=== PATIENT | female | born 1980 | race Caucasian/White ===

== ENCOUNTER 2020-08-24 04:06 | Emergency (ER) | payer BC, SELFPAY ==
--- NOTE | 2020-08-24 04:09 | ED_ITS ---
HPI - Abdominal Pain General Chief Complaint: Back Pain/Injury Stated Complaint: states abdominal and back pain since 1am Time Seen by Provider: 08/24/20 04:08 Source: patient Mode of arrival: Ambulatory Limitations: no limitations History of Present Illness HPI narrative: 39-year-old female nonsmoker presents to the emergency department with a chief complaint of decreased bowel movements, generalized, crampy abdo aviva discomfort and lower back pain over the course of this morning. She states that she has had trouble off and on at many times in her life with constipation and felt like she has been getting a bit backed up over the past few days. She denies nausea, vomiting or diarrhea. She denies any dysuria, frequency or urgency. She denies vaginal bleeding or discharge. She denies any dizziness, weakness or lightheadedness.She denies any injury. She denies radiation of her pain. MD complaint: abdominal pain Onset (ago): hour(s) Pain Consistency: intermittent Location: diffuse Severity: moderate Severity scale (1-10): 5 Quality: cramping Radiation: none Relieving factors: nothing Related Data Home Medications Medication Instructions Recorded Confirmed ACETAMINOPHEN 1,300 mg PO Q6HP #0 12/30/12 ibuprofen 600 mg PO Q8HP #0 12/30/12 Previous Rx's Medication Instructions Recorded levonorgestrel-ethinyl estrad 1 tab PO QDAY #1 pac 01/21/17 [Levora-28] Allergies Allergy/AdvReac Type Severity Reaction Status Date / Time No Known Drug Allergies Allergy Verified 08/24/20 04:15 Review of Systems Constitutional Constitutional: Denies chills, Denies fatigue, Denies fever(s), Denies frequent falls, Denies lethargy and Denies weakness Eyes Eyes: Denies change in vision, Denies eye discharge, Denies irritation and Denies loss of vision ENT Ears, Nose, Mouth, and Throat: Denies change in voice, Denies dizziness, Denies neck pain, Denies sore throat and Denies throat swelling Cardiovascular Cardiovascular: Denies chest pain, Denies irregular heart rhythm, Denies lightheadedness, Denies palpitations, Denies dyspnea, Denies dyspnea on exertion and Denies orthopnea Respiratory Respiratory: Denies cough, Denies dyspnea, Denies dyspnea on exertion and Denies wheezing Gastrointestinal Gastrointestinal: Reports abdominal pain, Denies change in bowel habits, Reports constipation, Denies diarrhea, Denies nausea and Denies vomiting Musculoskeletal Musculoskeletal: Reports back pain, Denies neck pain and Denies numbness Integumentary/Breasts Skin/Breast: Denies pruritus, Denies erythema, Denies rash and Denies wounds Neurologic Neurologic: Denies behavioral changes, Denies confusion, Denies dizziness, Denies frequent falls, Denies loss of vision, Denies numbness and Denies weakness Psychiatric Psychiatric: Denies anxiety, Denies behavioral changes, Denies confusion, Denies depression, Denies homicidal ideation and Denies suicidal ideation Endocrine Endocrine: Denies fatigue, Denies flushing and Denies palpitations Hematologic/Lymphatic Hematologic/Lymphatic: Denies easy bruising Allergic/Immunologic Allergic/Immunologic: Denies urticaria, Denies throat swelling and Denies wheezing Patient History Surgical History History of third molar tooth extraction Status post dilation and curettage Status post tonsillectomy and adenoidectomy Social History Smoking Status: Never smoker Smoking Status: Never smoker Exam Narrative Exam Narrative: GENERAL: [39] year old patient appears stated age. Well- nourished, well-developed patient, in mild distress. HEAD: Atraumatic. Normocephalic. EYES: Pupils equal round and reactive. Extraocular motions intact. No scleral icterus. No injection or drainage. ENT: Nose without bleeding, purulent drainage. Throat without erythema, tonsillar hypertrophy or exudate. Airway patent. NECK: Trachea midline. Non tender CARDIOVASCULAR: Regular rate and rhythm without murmurs, gallops, or rubs. RESPIRATORY: Clear to auscultation. Breath sounds equal bilaterally. No wheezes, rales, or rhonchi. GASTROINTESTINAL: Abdomen soft, non-tender, mild distension, bowel sounds present in all 4 quadrants. No rebound. EXTREMITIES: No edema or joint tenderness. BACK: framing machine tender but free of any obvious external abnormalities. Patient exam notes decreased range of motion and muscle spasm, but no CVA tenderness, or vertebral point tenderness. There are no symptoms of cauda equina such as saddle anesthesia, and decreased reflexes, decreased sensation or strength. NEURO: AOx3. SKIN: No rash or erythema of visible areas Initial Vital Signs Initial Vital Signs: Vital Signs Temperature 98.2 F 08/24/20 04:16 Pulse Rate 87 08/24/20 04:16 Respiratory Rate 17 08/24/20 04:16 Blood Pressure 157/95 H 08/24/20 04:16 Pulse Oximetry 100 08/24/20 04:16 Course Orders Ordered: ED Orders 08/24/20 04:18 XR acute abdomen series Stat 08/24/20 05:06 Test Urine Stat Urinalysis and Microscopic Stat Vital Signs Vital signs: Vital Signs - 8 hr 08/24/20 04:16 Temperature 98.2 F Pulse Rate 87 Respiratory Rate 17 Blood Pressure 157/95 H Pulse Oximetry 100 MDM - Abdominal Pain Lab Data Labs: Lab Results 08/24/20 08/24/20 Range/Units 05:06 05:06 Urine Color Yellow Urine Appearance Clear Urine pH 6.0 (4.5-8.0) Ur Specific Flasher <=1.005 (1.000-1.035) Urine Protein Negative (Negative) Urine Glucose (UA) Negative (Negative) g/dL Urine Ketones Trace H (NEGATIVE) Urine Occult Blood Trace-intact (Negative) Urine Nitrate Negative (Negative) Urine Bilirubin Negative (NEGATIVE) Urine Urobilinogen 0.2 (0.2) E.U./dL Ur Leukocyte Esterase Negative (NEGATIVE) Urine RBC None seen (0-5/HPF) Urine WBC None seen (0-5/HPF) Ur Squamous Epith Cells 5-10 /hpf H (0-5/HPF) Urine Bacteria Moderate (10-30) H (None) Ur Culture Indicated? Cult not indicated Urine Test Negative (Negative) Imaging Data Abdominal x-ray: Attestation: I personally reviewed and interpreted this imaging study as follows: My Impression: non specific bowel gas pattern, no obstruction or free air MDM Narrative Medical decision making narrative: Patient with decreased bowel movements, crampy, episodic abdominal pain and lower back pain. Patient has a very reassuring exam, obstruction considered but thought very unlikely given the presentation of the x-ray, soft abdomen on exam and lack of nausea or vomiting. Other etiologies such as appendicitis, gallbladder or pancreatic disease considered but thought less likely given the nature of her exam. Back pain is likely a consequence of the constipation causing her abdominal pain. She has no midline tenderness, no fever or high risk features such as numbness, tingling, weakness, involvement bowel or bladder control or other. Return precautions given, questions answered to her apparent satisfaction. Discharge Plan Departure Patient Disposition: Home Clinical Impression: Back pain Abdominal pain Qualifiers: Abdominal location: generalized Qualified Code(s): R10.84 - Generalized abdominal pain Constipation Qualifiers: Constipation type: unspecified constipation type Qualified Code(s): K59.00 - Constipation, unspecified Discharge Date/Time: 08/24/20 06:12 Instructions: DI for Constipation Activity Restrictions/Additional Instructions: *You have been diagnosed with [ abdominal pain due to constipation. Xray and exam are very reassuring. ] *What to do: *Take over the counter medications as directed: 1. Metamucil - is a bulk forming laxative and adds fiber 2. Colace - softens your stool 3. Dulcolax suppository - stimulates your bowels *Follow up with your primary care provider in 2-3 days, call for arielle ointment *Return to ER if you should have any new, worsening or concerning symptoms *Drink plenty of water and eat foods high in fiber *Stay as active as you can as this helps move your bowels as well Prescriptions: No Action ACETAMINOPHEN 1,300 mg PO Q6HP Qty: 0 RF: 0 ibuprofen 600 MG tablet 600 mg PO Q8HP Qty: 0 RF: 0 levonorgestrel-ethinyl estrad [Levora-28] 1 EACH tablet 1 tab PO QDAY Qty: 1 RF: 5 Referrals: Emelia Nash MD [Primary Care Provider] -
[2020-08-24 04:16] VITALS: BP 157/95; PULSE 87; RESP 17; TEMP 36.8; O2SAT 100; BMI 37.5
--- NOTE | 2020-08-24 04:18 | DI.RAD.S_ITS ---
PROCEDURE: XR ACUTE ABDOMEN SERIES INDICATIONS: Abdominal pain, back pain, decreased bowel movement TECHNIQUE: One view chest and two views of the abdomen were acquired. COMPARISON: None. FINDINGS: Surgical changes and devices: None. Chest: Lungs are clear. Heart size is normal. No pleural effusions. No pneumoperitoneum. Abdomen: Bowel gas pattern is normal. Moderate stool burden. No suspicious calcifications. Visualized solid organ contours appear normal. Bones: No suspicious bony lesions. IMPRESSION: Nonobstructive bowel gas pattern. Moderate stool burden. Dictated by: Morris Wray M.D. on 08/24/2020 at 8:31 Approved by: Morris Wray M.D. on 08/24/2020 at 8:32
[2020-08-24 05:17] LABS: RBC Urine None Seen (0-5/HPF); WBC Urine None Seen (0-5/HPF)
[2020-08-24 05:19] LABS: Appearance Urine UA CLEAR; Bilirubin Urine UA NEGATIVE (NEGATIVE); Color Urine UA YELLOW; Glucose Urine UA NEGATIVE (Negative); Ketones Urine UA TRACE (NEGATIVE); Leukocyte Esterase Urine UA NEGATIVE (NEGATIVE); Nitrite Urine UA NEGATIVE (Negative); Occult Blood Urine UA TRACE-INTACT (Negative); Pregnancy Test Urine Negative (Negative); Protein Urine UA NEGATIVE (Negative); Specific Gravity Urine UA <=1.005 (1.000-1.035); Urobilinogen Urine UA 0.2 E.U./dL (0.2)
[2020-08-24 05:26] LABS: Bacteria Urine Moderate (10-30); Culture Indicated Urine Cult Not Indicated; Squamous Epithelial Cell Urine 5-10 /HPF (0-5/HPF)
== END 2020-08-24 06:12 | disposition home or self-care (01) ==
PROVIDERS: Emergency Provider Emergency Medicine; PCP Obstetrics & Gynecology
DX: M54.5 Low back pain (principal); R10.84 Generalized abdominal pain; K59.00 Constipation, unspecified
CPT/HCPCS: 74022; 81001; 81025; 99283